=== PATIENT | male | born 1930 | race African-American/Black ===

== ENCOUNTER 2016-10-09 20:49 | Inpatient (IN) | payer MEDICARE, MEDICAID ==
[~2016-10-09] VITALS: Ht 188 cm; Wt 104.8 kg
[~2016-10-09 20:49] MED LIST: ASPI-1159 PO; ATOR10TA PO; Aspirin PO; CEFTRIAXONE IV; DONE5TAB7 PO; LEVO500T89 PO; LEVO75TA7 PO; LISI10TA5 PO; MEMA10TA11 PO; RISP0.5T19 PO
[2016-10-09] MEDS ORDERED: SODIUM CHLORIDE 0.9% 1,000 ML IV ONE (21:33)
[2016-10-09 22:02] LABS: HEMATOCRIT. 32.4 % (42.0-52.0); HEMOGLOBIN. 10.5 g/dL (14.0-18.0); MEAN CORPUSCULAR HEMOGLOBIN 31.1 pg (28.0-32.0); MEAN CORPUSCULAR VOLUME 96.1 fL (80.0-94.0); MEAN PLATELET VOLUME 8.7 fl (7.4-10.4); PLATELET 109 x1000/uL (130-400); RED BLOOD CELL COUNT 3.37 mill/uL (4.7-6.1); RED CELL DISTRIBUTION WIDTH 18.1 % (11.6-14.6)
[2016-10-09 22:06] LABS: INR 1.1; PROTHROMBIN TIME 11.1 sec
[2016-10-09 22:07] LABS: CHLORIDE 110 mEq/L (98-107)
[2016-10-09 22:14] LABS: CARBON DIOXIDE 24 mEq/L (21-32)
[2016-10-09 22:16] LABS: TROPONIN I < 0.02 ng/mL (0.00-0.04)
[2016-10-09 22:28] LABS: PLATELET ESTIMATE DECREASED
[2016-10-10 04:57] VITALS: BP 140/60
[2016-10-10 05:21] VITALS: BP 140/60
[2016-10-10] MEDS ORDERED: ACETAMINOPHEN 325MG TABLET PO PRN (05:30)
[2016-10-10 08:06] LABS: GLUCOSE URINE NEGATIVE (NEGATIVE); KETONES URINE NEGATIVE (NEGATIVE); LEUKOCYTE ESTERASE URINE NEGATIVE (NEGATIVE); NITRITE URINE NEGATIVE (NEGATIVE); OCCULT BLOOD URINE NEGATIVE (NEGATIVE); PROTEIN URINE TRACE (NEGATIVE); SPECIFIC GRAVITY URINE 1.025 (1.005-1.030); UROBILINOGEN URINE 0.2 E.U./dL (0.2-1.0)
[2016-10-10 08:07] LABS: CLARITY URINE CLEAR (CLEAR); COLOR URINE DARK YELLOW (YELLOW)
[2016-10-10] MEDS: DONEPEZIL HCL 5MG TABLET PO SCH (08:10)
[2016-10-10 08:18] VITALS: BP 148/72
[2016-10-10] MEDS: ASPIRIN 81MG EC TABLET PO SCH (09:00)
[2016-10-10] MEDS: LISINOPRIL 10MG TABLET PO SCH (09:00)
[2016-10-10] MEDS ORDERED: RISPERIDONE 0.5MG TABLET PO SCH (09:00)
[2016-10-10] MEDS ORDERED: LEVOTHYROXINE SODIUM 75MCG TABLET PO SCH (09:00)
[2016-10-10] MEDS ORDERED: MEMANTINE HCL 10MG TABLET PO SCH (09:00)
[2016-10-10 11:56] VITALS: BP 128/82
[2016-10-10 16:12] VITALS: BP 136/63
[2016-10-10] MEDS: LORAZEPAM 2MG/ML CPJ IV PRN ×2 (18:23→21:26)
[2016-10-10 20:00] VITALS: BP 123/79
[2016-10-10] MEDS: QUETIAPINE FUMARATE 25MG TABLET PO SCH (20:44)
[2016-10-10] MEDS ORDERED: ATORVASTATIN CALCIUM 10MG TABLET PO SCH (21:00)
[2016-10-11] VITALS: BP 118/72
[2016-10-11 04:00] VITALS: BP 126/88
[2016-10-11 05:49] LABS: HEMATOCRIT. 31.4 % (42.0-52.0); HEMOGLOBIN. 10.2 g/dL (14.0-18.0); MEAN CORPUSCULAR HEMOGLOBIN 31.2 pg (28.0-32.0); MEAN CORPUSCULAR VOLUME 96.3 fL (80.0-94.0); MEAN PLATELET VOLUME 9.1 fl (7.4-10.4); PLATELET 102 x1000/uL (130-400); RED BLOOD CELL COUNT 3.27 mill/uL (4.7-6.1); RED CELL DISTRIBUTION WIDTH 18.4 % (11.6-14.6)
[2016-10-11] MEDS: LORAZEPAM 2MG/ML CPJ IV PRN (06:01)
[2016-10-11] MEDS ORDERED: LEVOTHYROXINE SODIUM 75MCG TABLET PO SCH (06:45)
[2016-10-11 07:06] LABS: CARBON DIOXIDE 27 mEq/L (21-32); CHLORIDE 110 mEq/L (98-107)
[2016-10-11 08:00] VITALS: BP 142/81
[2016-10-11] MEDS: LISINOPRIL 10MG TABLET PO SCH (09:35)
[2016-10-11] MEDS: DONEPEZIL HCL 5MG TABLET PO SCH (09:35)
[2016-10-11] MEDS: ASPIRIN 81MG EC TABLET PO SCH (09:35)
[2016-10-11] MEDS: QUETIAPINE FUMARATE 25MG TABLET PO SCH (09:35)
[2016-10-11 10:03] LABS: PLATELET ESTIMATE NORMAL
[2016-10-11 12:00] VITALS: BP 136/84
[2016-10-11 16:31] VITALS: BP 138/70
== END 2016-10-11 18:00 | DRG 840 ==
LOC: ER 21:47 → 5WST 23:34 → EDBEDREQ 23:39 → EDBEDREQSVC 23:39 → ENRESERV 10-10 02:32
PROVIDERS: ADMIT Internal Medicine; ATTEND Internal Medicine
DX: C91.10 Chronic lymphocytic leukemia of B-cell type not having achieved remission (principal); G93.40 Encephalopathy, unspecified; F03.91 Unspecified dementia, unspecified severity, with behavioral disturbance; E44.0 Moderate protein-calorie malnutrition; E03.9 Hypothyroidism, unspecified; D69.6 Thrombocytopenia, unspecified; F20.9 Schizophrenia, unspecified; I10 Essential (primary) hypertension; E11.9 Type 2 diabetes mellitus without complications; E78.00 Pure hypercholesterolemia, unspecified; E78.5 Hyperlipidemia, unspecified; I25.10 Atherosclerotic heart disease of native coronary artery without angina pectoris; Z51.5 Encounter for palliative care; Z78.1 Physical restraint status; Z68.29 Body mass index [BMI] 29.0-29.9, adult; Z79.899 Other long term (current) drug therapy; Z79.82 Long term (current) use of aspirin
CPT/HCPCS: 36415; 71010; 80048; 80053; 81001; 82784; 83605; 83690; 83880; 84484; 85025; 85610; 86880; 87040; 87086; 93005; 96360; 96361; 99285; J2060; J7030; A4315